=== PATIENT | male | born 1970 | race Caucasian/White ===

== ENCOUNTER 2022-08-02 08:58 | Outpatient (CLI) | payer BC, SELFPAY ==
[2022-08-02 14:08] LABS: Albumin* 4.6 g/dL (3.3-5.0)
[2022-08-02 14:09] LABS: Chloride* 108 mmol/L (96-114); Potassium* 4.4 mmol/L (3.6-5.1); Sodium* 143 mmol/L (135-149)
[2022-08-02 14:11] LABS: Bilirubin Total* 0.5 mg/dL (0.1-1.5); Carbon Dioxide* 25 mmol/L (20-32); Cholesterol* 163 mg/dL (90-199); Creatinine* 0.7 mg/dL (0.5-1.5); Estimated Glomerular Filt Rate 112 ml/min
[2022-08-02 14:12] LABS: Alanine Aminotransferase* 41 U/L (4-50); Alkaline Phosphatase* 101 U/L (40-150); Aspartate Amino Transferase* 28 U/L (12-35); Blood Urea Nitrogen* 16 mg/dL (7-30); Calcium* 9.2 mg/dL (8.4-10.6); Glucose* 103 mg/dL (60-115); Total Protein* 7.7 g/dL (6.0-8.3); Triglycerides* 162 mg/dL (40-149)
[2022-08-02 14:13] LABS: HDL Cholesterol* 37 mg/dL (>=40); LDL Cholesterol Calculated 94 mg/dL (<100)
[2022-08-02 14:39] LABS: PSA Screen* 0.91 ng/mL (0.10-4.00)
== END 2022-08-02 08:59 | disposition home or self-care (01) ==
PROVIDERS: PCP Family Medicine; Visit Provider Family Medicine
DX: Z00.00 Encounter for general adult medical examination without abnormal findings (principal); E78.00 Pure hypercholesterolemia, unspecified; E66.9 Obesity, unspecified; R03.0 Elevated blood-pressure reading, without diagnosis of hypertension; Z12.5 Encounter for screening for malignant neoplasm of prostate; Z13.6 Encounter for screening for cardiovascular disorders
CPT/HCPCS: 80053; 80061; 84153

== ENCOUNTER 2022-08-22 08:48 | Day surgery (SDC) | payer BC, SELFPAY ==
[2022-08-22] VITALS (10 sets, daily range): BP systolic 103–166; BP diastolic 58–95; PULSE 47–79; RESP 16–18; TEMP 36.3–36.9; O2SAT 92–96; BMI 36.3
[2022-08-22] MEDS: SODIUM CHLORIDE 0.9 % (FLUSH) 10 ML SYRINGE IVF (09:15)
[2022-08-22] MEDS: LACTATED RINGERS 1000 ML 1,000 ML 100 ML IV ×2 (09:15→12:41)
--- NOTE | 2022-08-22 09:20 | SUR.PREOP ---
Patient provided home covid negative results to RN.
[2022-08-22] MEDS: CEFAZOLIN 2 GM INJ IVP (12:06)
[2022-08-22] MEDS: BUPIVACAINE 0.5% 30 ML 9 ML INJECTION (12:33)
--- NOTE | 2022-08-22 12:44 | P.GSOP_ITS ---
Operative Note Date of procedure: 08/22/22 Pre-op diagnosis: 1. Enlarging umbilical hernia. Post-op diagnosis: Same Type of Procedure: 1. Open umbilical hernia repair with mesh. Indications: 51-year-old male was seen in clinic for evaluation of an enlarging umbilical bulge. Patient states that he initially noticed the bulge 15 years ago. He denies any pain. However in the last year his umbilical bulge became bilobed and started to bulge out on the other side of the umbilicus. On clinical exam at the superior aspect of the umbilicus there was a bilobed umbilical bulge measuring approximately the size of a small grape. This was reducible. The fascial defect was thought to be approximately 1 cm on one side but not completely defined. Given patient's clinical history and his physical exam, an open umbilical hernia repair was recommended. The procedure was discussed in detail. The risks associated the procedure including infection, bleeding, inj ury to intra-abdominal organs, and hernia recurrence were all discussed with the patient, and he agreed to proceed. Procedure Description: After discussing the risks and benefits of the procedure, the patient signed informed consent.? The operative site was marked and the patient was brought to the operating room and placed on the operating table in supine position.? Care was taken to pad the patient's pressure points.?? The patient was then intubated by anesthesia.?? The operative site was then prepped and draped in the usual sterile fashion.? A time-out was then performed. Local anesthetic was injected at the surgical site. A curvilinear skin incision was made with a scalpel just below umbilicus. Subcutaneous tissue was dissected with electrocautery down to the hernia sac and anterior fascia. The hernia sac was dissected off of the anterior fascia and subcutaneous fat around the fascial defect was dissected away from the fascial defect with cautery. Preperitoneal fat was incarcerated through the fascial defect. I then developed preperitoneal space for mesh insertion. The fascial defect was approximately 1.7 cm. A small Ventralex ST mesh patch was then inserted into preperitoneal space and secured to the fascia using 0-0 Neurolon interrupted stitches. I examined my closure and no defects were identified between the fascia and the mesh. Fascia was re- approximated over the mesh with a running 2-0 Vicryl stitch. Additional local anesthetic was injected into subcutaneous tissues. An umbilicus was tacked down with interrupted 3-0 Vicryl stitches. Subdermal layer was closed with interrupted sutures using 3-0 Vicryl. Skin was closed with 4-0 Monocryl using subcuticular stitch. Steri strips were applied over the incision. I then placed a folded sterile 4x4 gauze over the incision and covered it with tape. All counts were correct at the end of the case. Patient tolerated the procedure well and was transferred to PACU without any complications. Findings: 1.7 cm fascial defect, repaired with mesh. Anesthesia: GETA Surgeon: Dmitry Nance MD Estimated blood loss (mL): 5 Condition: stable Disposition: PACU
--- NOTE | 2022-08-22 13:01 | W.ANESCHARGE ---
Anesthesia Charges Start Date/Time Anesthesia Start Date: 08/22/22 Anesthesia Start Time: 11:56 Stop Date/Time Anesthesia Stop Date: 08/22/22 Anesthesia Stop Time: 12:59
[2022-08-22] MEDS: fentaNYL 100 MCG/2 ML inj 50 MCG IVP (13:05)
[2022-08-22] MEDS: HYDROCODONE-ACETAMIN 5-325 MG 1 TAB PO (14:15)
--- NOTE | 2022-08-22 14:55 | W.ANESCHARGE ---
Anesthesia Charges Start Date/Time Anesthesia Start Date: 08/22/22 Anesthesia Start Time: 11:56 Stop Date/Time Anesthesia Stop Date: 08/22/22 Anesthesia Stop Time: 12:59
== END 2022-08-22 14:40 | disposition home or self-care (01) ==
PROVIDERS: PCP Family Medicine; Visit Provider Surgery
PROC: (CPT 49592; principal; 2022-08-22 10:15)
DX: K42.0 Umbilical hernia with obstruction, without gangrene (principal)
CPT/HCPCS: 49592; 00750; A9270; C1781; J0330; J0690; J1100; J1170; J2250; J2405; J2704; J2710; J3010; J3490; J7120